=== PATIENT | female | born 1975 | race Caucasian/White ===

== ENCOUNTER 2016-09-02 23:30 | Emergency (ER) | payer SELFPAY ==
--- NOTE | 2016-09-03 02:01 | ED NURSING NOTES ---
Clinical Report - Nurses [facility] [address] [place] [address] 09/02/2016 23:32 Patient: JENS CRENSHAW TRIAGE Triage time 23:37. Acuity: LEVEL 3. Chief Complaint: (Syncopal episode). 23:48. Alert. SEPSIS SCREEN: Sepsis Screen. Negative (no infection suspected/documented). OLIVE COMA SCORE: Olive Coma Scale: 15- eyes open spontaneously (4); best verbal response- oriented x 4 (5); best motor response- obeys commands (6). --23:48 Eric Eagle R.N. 23:41 09/02/16. BP: 119/79. HR: 91. RR: 15. O2 saturation: 100%. Temp: 98.4 F (oral). Pain level now: 0/10. --23:48 Eric Eagle R.N. Weight: 72.5 kg stated. Height/Length: 66 inches Per Patient. BMI: 25.8. --23:44 Eric Eagle R.N. Medications None. --23:44 Eric Eagle R.N. Allergies No Known Drug Allergy. --23:44 Eric Eagle R.N. Medication/allergy information source: the patient. --23:48 Eric Eagle R.N. History Arrived by private vehicle. Historian: patient. Accompanied by friend. Primary physician (None). Onset. (15 - 20 minutes ago). ( [place], had had a migraine ORELLANA for most of the day, stood up and got dizzy, lightheaded and passed out, was caught by her boyfriend and lowered her to the floor). Treatment SURVEY TECHNICIAN: EMS treatment SURVEY TECHNICIAN verbally communicated. Oxygen administered by nasal cannula and at 2 liters/minute. ( 500ml NS infused SURVEY TECHNICIAN). PAST MEDICAL HX: Immunizations: up-to-date. The patient has had a hysterectomy. SOCIAL HX: Current every day heavy tobacco smoker- 1 pack per day. Occasional alcohol use. No drug use. No infectious disease exposure. ABUSE ASSESSMENT: No report of abuse. FALL RISK ASSESSMENT: Fall risk assessment completed. No fall risk identified. NUTRITIONAL RISK ASSESSMENT: The nutritional risk assessment revealed no deficiencies. FUNCTIONAL ASSESSMENT: Functional assessment: no impairments noted. LEARNING NEEDS ASSESSMENT: The learning needs assessment revealed no barriers. SKIN INTEGRITY ASSESSMENT: Skin integrity risk assessment completed. No skin integrity risk identified. --23:48 Eric Eagle R.N. PROBLEMS: Migraine Headache. --23:44 Eric Eagle R.N. ADDITIONAL SURGERIES: Cholecystectomy. Hysterectomy. --23:44 Eric Eagle R.N. Interventions ID band on patient. To treatment room. --23:48 Eric Eagle R.N. <<STRICKEN ENTRY-- 23:28 09/02/2016 Site #1 started prior to arrival by EMS via IV in the right antecubital space with an 18g angiocath. --23:43 Eric Eagle R.N. --END STRIKE>> Correction. --23:54 Eric Eagle R.N. 23:28 09/02/2016 Site #1 started prior to arrival by EMS via IV in the right forearm with an 18g angiocath. --23:54 Eric Eagle R.N. PHYSICAL ASSESSMENT 23:49. To room via stretcher. Patient gowned. GENERAL / NEURO / PSYCH: Alert. Oriented X 4. HEENT: No facial asymmetry noted. Mucous membranes are pink. RESPIRATORY: Respirations not labored. SKIN: Skin intact. Skin is warm and dry. Normal skin turgor. --23:49 Eric Eagle R.N. NURSING PROGRESS NOTES 23:46. EKG time: (3855). EKG was performed by a tech and shown to the ED physician. --23:59 Eric Eagle R.N. 23:49. Head of bed elevated. Two patient identifiers checked. Call light placed in reach. Side rails up x 1. Bed placed in lowest position. Brakes of bed on. Patient ready for evaluation- chart flagged. --23:49 Eric Eagle R.N. 23:49 Boyfriend at bedside. --23:49 Eric Eagle R.N. 23:53 Attempted to draw blood from IV site - unable. --23:54 Eric Eagle R.N. 23:31 09/02/2016 Started bag #1 1000 mL IV Fluids IV NS (Saline); at 1000 mL/hr over 1 hour(s) via site #1. (500ml infused SURVEY TECHNICIAN). --23:56 Eric Eagle R.N. 23:56 09/02/2016 IV Fluids IV NS Discontinued: bag #1 infused. Total amount infused: 1000 mL. IV patency established. IV site checked: no pain, redness, or swelling. IV flushed thoroughly. --23:56 Eric Eagle R.N. 23:57 Patient assisted to restroom. --23:59 Eric Eagle R.N. 00:00. Patient ID band checked for patient name and birthdate: patient confirmed. Clean catch urine collected with return of yellow-colored clear urine; sample sent to lab for urinalysis. Specimen labeled in the presence of the patient. --00:04 Eric Eagle R.N. 00:27 equip tech with pt for blood draw. --00:27 Eric Eagle R.N. 00:37. Patient transported to CT by stretcher with tech. --00:38 Eric Eagle R.N. 00:48. Patient returned from CT by stretcher with tech. --00:51 Eric Eagle R.N. The patient is calm and resting quietly. RESPIRATORY: No respiratory distress. SKIN: Skin is warm and dry. Skin color within normal limits. --01:31 Eric Eagle R.N. 01:30 09/03/16. BP: 106/61. HR: 82. RR: 15. O2 saturation: 99% on room air. Pain level now: 0/10. --01:31 Eric Eagle R.N. 02:05. The patient is calm and resting quietly. RESPIRATORY: No respiratory distress. SKIN: Skin is warm and dry. Skin color within normal limits. --02:11 Eric Eagle R.N. DISPOSITION / DISCHARGE 02:05 09/03/2016 Site #1 removed upon discharge. Catheter intact. Bandage applied. --02:10 Eric Eagle R.N. Departure time: 02:10. Condition at departure: stable. ( See progress for vitals). No learning barriers present. Discharge instructions provided and reviewed with the patient. Reviewed medication(s) side effects, precautions, dosing and course information. Prescription(s) given to the patient. Patient verbalized understanding. Written instructions provided in [place]. The patient was discharged home and accompanied by guard entrance registrar. She left the Emergency Department ambulatory and via private vehicle. Nurses Superintendent driving. FALL RISK ASSESSMENT: Fall risk assessment completed. No fall risk identified. --02:11 Eric Eagle R.N. Locked/Released at 09/03/2016 2:12 by Eric Eagle R.N.
--- NOTE | 2016-09-03 02:01 | ED ORDER SUMMARY ---
..... Patient: JENS CRENSHAW OrderSheet [facility] VisitID: [id number] [address] [place] [address] 40y, F Registration Date/Time: 09/02/2016 ORDER SHEET Weight: 72.5 kg (stated) Allergies: No Known Drug Allergy GENERAL ORDERS: CBC w Diff Urgent (23:55 09/02/2016 JQuivey R.N. per protocol) (Ack 23:58 CHagerty ER Focuser) (0:37 JQuivey R.N.) CMP Urgent (23:55 09/02/2016 JQuivey R.N. per protocol) (Ack 23:58 CHagerty ER Focuser) (0:37 JQuivey R.N.) UA-Culture if indicated Urgent (23:55 09/02/2016 JQuivey R.N. per protocol) (Ack 23:58 CHagerty ER Focuser) (0:18 CHagerty ER Focuser) EKG - ER Stat (23:55 09/02/2016 JQuivey R.N. per protocol) (Ack 23:58 CHagerty ER Focuser) (23:58 CHagerty ER Focuser) Urine Urgent (00:01 09/03/2016 Emanuel Randle) (0:18 CHagerty ER Focuser) CT Head wo Cont Urgent (00:30 09/03/2016 Emanuel Randle) (Ack 0:36 CHagerty ER Focuser) (0:52 JQuivey R.N.) MEDICATION ORDERS: IV FLUIDS: IV NS : initial bolus none -, then 1000 mL/hr (NOW) (23:55 09/02/2016 JQuivey R.N. per protocol) (23:56 JQuivey R.N.) ORDER SHEET NOTES: [Electronically signed by Eric Eagle R.N. (02:12 09/03/2016)] [Electronically signed by Bassem Au Dr. (16:15 09/05/2016)] [Electronically locked/signed by Eric Eagle R.N. (02:12 09/03/2016)]
--- NOTE | 2016-09-03 02:01 | ED ORDER SUMMARY ---
..... Patient: JENS CRENSHAW OrderSheet [facility] VisitID: [id number] [address] [place] [address] 40y, F Registration Date/Time: 09/02/2016 ORDER SHEET Weight: 72.5 kg (stated) Allergies: No Known Drug Allergy GENERAL ORDERS: CBC w Diff Urgent (23:55 09/02/2016 JQuivey R.N. per protocol) (Ack 23:58 CHagerty ER Crew Boss) (0:37 JQuivey R.N.) CMP Urgent (23:55 09/02/2016 JQuivey R.N. per protocol) (Ack 23:58 CHagerty ER Crew Boss) (0:37 JQuivey R.N.) UA-Culture if indicated Urgent (23:55 09/02/2016 JQuivey R.N. per protocol) (Ack 23:58 CHagerty ER Crew Boss) (0:18 CHagerty ER Crew Boss) EKG - ER Stat (23:55 09/02/2016 JQuivey R.N. per protocol) (Ack 23:58 CHagerty ER Crew Boss) (23:58 CHagerty ER Crew Boss) Urine Urgent (00:01 09/03/2016 Emanuel Randle) (0:18 CHagerty ER Crew Boss) CT Head wo Cont Urgent (00:30 09/03/2016 Emanuel Randle) (Ack 0:36 CHagerty ER Crew Boss) (0:52 JQuivey R.N.) MEDICATION ORDERS: IV FLUIDS: IV NS : initial bolus none -, then 1000 mL/hr (NOW) (23:55 09/02/2016 JQuivey R.N. per protocol) (23:56 JQuivey R.N.) ORDER SHEET NOTES: [Electronically signed by Eric Eagle R.N. (02:12 09/03/2016)] [Electronically signed by Bassem Au Dr. (16:15 09/05/2016)] [Electronically locked/signed by Eric Eagle R.N. (02:12 09/03/2016)]
--- NOTE | 2016-09-03 02:01 | ED CLINICAL REPORT ---
Clinical Report - Physicians/Mid Levels [facility] [address] [place] [address] 09/02/2016 23:32 Patient: JENS CRENSHAW Time Seen: 2349. Arrived- By private vehicle. Historian- patient. HISTORY OF PRESENT ILLNESS Is no longer unconscious. She has recovered. Chief Complaint: SINGLE SYNCOPAL EPISODE. It was abrupt in onset and has been intermittent. This occurred today. Event was not witnessed. The patient lost consciousness and collapsed. The event occurred during exertion. The patient had preceding symptoms of light-headedness. No preceding symptoms of chest pain or abdominal pain. The episode lasted seconds. No injuries noted. Currently she feels normal. No weakness currently. No nausea currently. No headache currently. Similar symptoms previously: None. Recent medical care: Not recently seen/assessed. REVIEW OF SYSTEMS No headache, dizziness, chest pain, palpitations or abdominal pain. No vomiting, diarrhea, black stools, numbness or bloody stools. No fever, sore throat or difficulty breathing. All systems otherwise negative, except as recorded above. PAST HISTORY See nurses notes. Medications: None. Allergies: No Known Drug Allergy. SOCIAL HISTORY Smoker- current status unknown. Never smoker. Occasional alcohol use. No drug use. Is a local resident. ADDITIONAL NOTES The nursing notes have been reviewed. PHYSICAL EXAM Vital Signs: 09/02/2016 23:41 BP: 119/79. HR: 91. RR: 15. O2 saturation: 100%. Temp: 98.4 F. Pain level now: 0/10. Blood pressure normal. Oxygen saturation normal. Appearance: Alert. No acute distress. Eyes: Pupils equal, round and reactive to light. No nystagmus. Extraocular movements normal. ENT: Normal ENT inspection. TM's normal. Moist mucous membranes. Pharynx normal. Neck: Normal inspection. Neck supple. CVS: Normal heart rate and rhythm. Heart sounds normal. Pulses normal. Respiratory: No respiratory distress. Breath sounds normal. Abdomen: Soft and nontender. No organomegaly. Skin: Skin warm and dry. Normal skin color. No rash. Normal skin turgor. Extremities: Extremities exhibit normal ROM. No lower extremity edema. Neuro: Alert. Oriented X 3. Mood/affect normal. Speech normal. Cranial nerves normal (as tested). No cerebellar findings. No motor deficit. No sensory deficit. Reflexes normal. (normal gait). LABS, X-RAYS, AND EKG EKG: No acute process. No acute ischemia. Normal EKG. Normal sinus rhythm. Normal P waves. Normal DIANE. Normal QRS complex. Normal axis. Normal ST and T waves, QT and QTc. Prior EKG unavailable. The study has been interpreted contemporaneously. The study has been independently viewed by me. Artifact present. Laboratory Tests: UA-Culture if indicated: (LETICIA: 09/03/2016 00:01) ( [facility] 09/03/2016 00:16) Final results Test Result Flag Units (Reference) URINE COLOR YELLOW URINE APPEARANCE CLEAR URINE GLUCOSE NEGATIVE (NEGATIVE) URINE BILIRUBIN NEGATIVE (NEGATIVE) URINE KETONE NEGATIVE (NEGATIVE) URINE SPECIFIC GRAVITY 1.020 (1.010-1.030) URINE PH 6.0 (5.0-8.0) URINE PROTEIN NEGATIVE (NEGATIVE) URINE UROBILINOGEN 0.2 EU/dL (0.2-1.0) URINE NITRITE NEGATIVE (NEGATIVE) URINE BLOOD NEGATIVE (NEGATIVE) URINE LEUK ESTERASE NEGATIVE (NEGATIVE) URINE RBC 0-1 rbc/hpf (0-1) URINE WBC 0-1 wbc/hpf (0-1) URINE EPITHELIAL CELLS 0-1 EPI/hpf (0-5) URINE BACTERIA NONE SEEN (NONE SEEN) URINE COMMENT CULT NOT INDICATED URINE CULTURES ARE SET-UP BASED ON THE FOLLOWING CRITERIA:POSITIVE NITRITEPOSITIVE LEUKOCYTE ESTERASEGREATER THAN 10 WHITE BLOOD CELLSMODERATE (2+) OR GREATER BACTERIA Urine: (LETICIA: 09/03/2016 00:01) ( [facility] 09/03/2016 00:11) Final results Test Result Flag Units (Reference) URINE NEGATIVE CBC w Diff: (LETICIA: 09/03/2016 00:25) ( [facility] 09/03/2016 00:36) Final results Test Result Flag Units (Reference) WHITE BLOOD COUNT 14.0 H K/uL (4.5-11.5) RED BLOOD COUNT 4.59 M/uL (4.00-5.20) HEMOGLOBIN 14.3 gm/dL (12.0-16.0) HEMATOCRIT 42.5 % (36.0-46.0) MEAN CELL VOLUME 93 fL (80-100) MEAN CORPUSCULAR HGB 31 pg (26-34) MEAN CORPUSCULAR HGB CONC 34 g/dL (31-37) RED CELL DISTRIBUTION WIDTH 13.9 % (11.6-14.8) PLATELET COUNT 245 K/uL (150-400) NEUTROPHIL % 84.1 H % (50-75) LYMPH % 10.5 L % (25-40) MONO % 4.3 % (3-14) EOSINOPHIL % 0.9 % (0-4) BASOPHIL % 0.2 % (0-2) CMP: (LETICIA: 09/03/2016 00:25) ( MsgRcvd 09/03/2016 00:50) Final results Test Result Flag Units (Reference) GLUCOSE 98 mg/dL (70-110) BUN 8 mg/dL (7-18) CREATININE 0.7 mg/dL (0.6-1.3) Estimated GFR >60 mL/min Estimated GFR- >60 mL/min Note: Persistent reduction over 3 months in eGFR<60 mL/min/1.73 m2 defines CKD. Patients with eGFR values>=60 mL/min/1.73 m2 may also have CKD if evidence ofpersistent proteinuria. Additional information may be foundat www.kidney.org. SODIUM 141 mmol/L (136-145) POTASSIUM 3.7 mmol/L (3.5-5.1) CHLORIDE 106 mmol/L (98-107) CARBON DIOXIDE 23 mmol/L (21-32) CALCIUM 8.3 L mg/dL (8.5-10.1) TOTAL PROTEIN 7.3 g/dL (6.4-8.2) ALBUMIN 3.7 g/dL (3.3-5.0) BILIRUBIN, TOTAL 0.4 mg/dL (0.0-1.0) ALKALINE PHOSPHATASE 73 U/L (46-116) AST (SGOT) 14 L U/L (15-37) ALT (SGPT) 20 U/L (12-78) . PROGRESS AND PROCEDURES Course of Care: the patient is a 40-year-old female presenting for evaluation of syncopal event. The patient will be evaluated with the [place] syncope rule. Patient is currently lying in bed in no acute distress. Patient appears nontoxic. Patient will be evaluated for other etiologies of the syncope including ectopic with a urine test on the urinary tract infection. patient is agreeable to the treatment and plan. The patient's workup was remarkable for the findings above. Patient was resting in bed in no acute distress. Repeat examination continues to be benign. Had a discussion with the patient in regards to syncope in the emergency department. Recommend patient follow up with her primary care doctor. No acute Abnormality noted on patient's workup here in emergency department. Patient at low risk for adverse outcomes based on her evaluation here in the emergency department today. Had a discussion with the patient in regards to her workup here in emergency department including diagnosis, home care, follow-up, and return precautions. All questions have been answered. The patient expressed understanding of these instructions and was agreeable to that. Do not feel patient needs be admitted to the hospital. Did not feel further emergency department workup required at this time. Disposition: Discharged. Condition: good. CLINICAL IMPRESSION Syncope of unknown cause(acute). INSTRUCTIONS Warnings: GENERAL WARNINGS: Return or contact your physician immediately if your condition worsens or changes unexpectedly, if not improving as expected, or if other problems arise. SPECIFICALLY, return if you develop chest pain, fluttering sensation in your chest, lightheadedness, fainting, numbness, weakness or extreme fatigue. Your Current Medications: CONTINUE TAKING THE FOLLOWING MEDICATIONS: None*. Prescription Medications: Zofran (orally disintegrating tablets) 4 mg: take 1 orally every 8 hours as needed for nausea and vomiting. Dispense ten (10). No refill. Substitution is permissible. Follow-up: Return to the emergency department as needed. Follow up with doctor. Reason for referral: recheck today's concerns. Summary of care provided to patient via paper. Screening today revealed the patient's blood pressure to be in the normal range. The patient should follow up with a primary care provider for blood pressure management. Understanding of the discharge instructions verbalized by patient. (Electronically signed by Bassem Au Dr. 09/05/2016 16:15)
--- NOTE | 2016-09-03 02:01 | ED NURSING NOTES ---
Clinical Report - Nurses [facility] [address] [place] [address] 09/02/2016 23:32 Patient: JENS CRENSHAW TRIAGE Triage time 23:37. Acuity: LEVEL 3. Chief Complaint: (Syncopal episode). 23:48. Alert. SEPSIS SCREEN: Sepsis Screen. Negative (no infection suspected/documented). OLIVE COMA SCORE: Olive Coma Scale: 15- eyes open spontaneously (4); best verbal response- oriented x 4 (5); best motor response- obeys commands (6). --23:48 Eric Eagle R.N. 23:41 09/02/16. BP: 119/79. HR: 91. RR: 15. O2 saturation: 100%. Temp: 98.4 F (oral). Pain level now: 0/10. --23:48 Eric Eagle R.N. Weight: 72.5 kg stated. Height/Length: 66 inches Per Patient. BMI: 25.8. --23:44 Eric Eagle R.N. Medications None. --23:44 Eric Eagle R.N. Allergies No Known Drug Allergy. --23:44 Eric Eagle R.N. Medication/allergy information source: the patient. --23:48 Eric Eagle R.N. History Arrived by private vehicle. Historian: patient. Accompanied by friend. Primary physician (None). Onset. (15 - 20 minutes ago). ( [place], had had a migraine ORELLANA for most of the day, stood up and got dizzy, lightheaded and passed out, was caught by her boyfriend and lowered her to the floor). Treatment PYTHON PROGRAMMER: EMS treatment PYTHON PROGRAMMER verbally communicated. Oxygen administered by nasal cannula and at 2 liters/minute. ( 500ml NS infused PYTHON PROGRAMMER). PAST MEDICAL HX: Immunizations: up-to-date. The patient has had a hysterectomy. SOCIAL HX: Current every day heavy tobacco smoker- 1 pack per day. Occasional alcohol use. No drug use. No infectious disease exposure. ABUSE ASSESSMENT: No report of abuse. FALL RISK ASSESSMENT: Fall risk assessment completed. No fall risk identified. NUTRITIONAL RISK ASSESSMENT: The nutritional risk assessment revealed no deficiencies. FUNCTIONAL ASSESSMENT: Functional assessment: no impairments noted. LEARNING NEEDS ASSESSMENT: The learning needs assessment revealed no barriers. SKIN INTEGRITY ASSESSMENT: Skin integrity risk assessment completed. No skin integrity risk identified. --23:48 Eric Eagle R.N. PROBLEMS: Migraine Headache. --23:44 Eric Eagle R.N. ADDITIONAL SURGERIES: Cholecystectomy. Hysterectomy. --23:44 Eric Eagle R.N. Interventions ID band on patient. To treatment room. --23:48 Eric Eagle R.N. <<STRICKEN ENTRY-- 23:28 09/02/2016 Site #1 started prior to arrival by EMS via IV in the right antecubital space with an 18g angiocath. --23:43 Eric Eagle R.N. --END STRIKE>> Correction. --23:54 Eric Eagle R.N. 23:28 09/02/2016 Site #1 started prior to arrival by EMS via IV in the right forearm with an 18g angiocath. --23:54 Eric Eagle R.N. PHYSICAL ASSESSMENT 23:49. To room via stretcher. Patient gowned. GENERAL / NEURO / PSYCH: Alert. Oriented X 4. HEENT: No facial asymmetry noted. Mucous membranes are pink. RESPIRATORY: Respirations not labored. SKIN: Skin intact. Skin is warm and dry. Normal skin turgor. --23:49 Eric Eagle R.N. NURSING PROGRESS NOTES 23:46. EKG time: (8815). EKG was performed by a tech and shown to the ED physician. --23:59 Eric Eagle R.N. 23:49. Head of bed elevated. Two patient identifiers checked. Call light placed in reach. Side rails up x 1. Bed placed in lowest position. Brakes of bed on. Patient ready for evaluation- chart flagged. --23:49 Eric Eagle R.N. 23:49 Boyfriend at bedside. --23:49 Eric Eagle R.N. 23:53 Attempted to draw blood from IV site - unable. --23:54 Eric Eagle R.N. 23:31 09/02/2016 Started bag #1 1000 mL IV Fluids IV NS (Saline); at 1000 mL/hr over 1 hour(s) via site #1. (500ml infused PYTHON PROGRAMMER). --23:56 Eric Eagle R.N. 23:56 09/02/2016 IV Fluids IV NS Discontinued: bag #1 infused. Total amount infused: 1000 mL. IV patency established. IV site checked: no pain, redness, or swelling. IV flushed thoroughly. --23:56 Eric Eagle R.N. 23:57 Patient assisted to restroom. --23:59 Eric Eagle R.N. 00:00. Patient ID band checked for patient name and birthdate: patient confirmed. Clean catch urine collected with return of yellow-colored clear urine; sample sent to lab for urinalysis. Specimen labeled in the presence of the patient. --00:04 Eric Eagle R.N. 00:27 telecommunications technician with pt for blood draw. --00:27 Eric Eagle R.N. 00:37. Patient transported to CT by stretcher with tech. --00:38 Eric Eagle R.N. 00:48. Patient returned from CT by stretcher with tech. --00:51 Eric Eagle R.N. The patient is calm and resting quietly. RESPIRATORY: No respiratory distress. SKIN: Skin is warm and dry. Skin color within normal limits. --01:31 Eric Eagle R.N. 01:30 09/03/16. BP: 106/61. HR: 82. RR: 15. O2 saturation: 99% on room air. Pain level now: 0/10. --01:31 Eric Eagle R.N. 02:05. The patient is calm and resting quietly. RESPIRATORY: No respiratory distress. SKIN: Skin is warm and dry. Skin color within normal limits. --02:11 Eric Eagle R.N. DISPOSITION / DISCHARGE 02:05 09/03/2016 Site #1 removed upon discharge. Catheter intact. Bandage applied. --02:10 Eric Eagle R.N. Departure time: 02:10. Condition at departure: stable. ( See progress for vitals). No learning barriers present. Discharge instructions provided and reviewed with the patient. Reviewed medication(s) side effects, precautions, dosing and course information. Prescription(s) given to the patient. Patient verbalized understanding. Written instructions provided in [place]. The patient was discharged home and accompanied by immigration associate. She left the Emergency Department ambulatory and via private vehicle. Religious Educator driving. FALL RISK ASSESSMENT: Fall risk assessment completed. No fall risk identified. --02:11 Eric Eagle R.N. Locked/Released at 09/03/2016 2:12 by Eric Eagle R.N.
--- NOTE | 2016-09-03 04:49 | DIAGNOSTIC IMAGING REPORT ---
PROCEDURE: CT HEAD WITHOUT CONTRAST INDICATION: SYNCOPE TECHNIQUE: Noncontrast axial images with sagittal and coronal reformations. There are poor provided by James Munoz MD. COMPARISON: None. FINDINGS: Brain and ventricles are normal. No evidence of an acute process or hemorrhage. Sinuses and mastoids are normal. IMPRESSION: 1. Negative head CT. All CT scans at this facility use dose modulation, iterative reconstruction, and/or weight-based dosing when appropriate to reduce radiation dose to as low as reasonably achievable.
--- NOTE | 2016-09-05 16:16 | ED MAR SUMMARY ---
..... Medication Administration Record [facility] [address] [place] [address] Patient: JENS CRENSHAW Visit ID: [id number] 40y, F Weight: 72.5 kg Height/Length: 66 in BMI: 25.8 ALLERGIES: No Known Drug Allergy Start 23:31 09/02/2016 Eric Eagle RBillN., Stop 23:56 09/02/2016 Eric Eagle RBillN. Medication Administered: IV NS (SALINE), Dose: IV Fluids over 1 hour(s), Rate: 1000 mL/hr, Dispensed: 1000 mL bag, Site: #1 right forearm. Medication Ordered: IV NS : initial bolus none -, then 1000 mL/hr (NOW).
--- NOTE | 2016-09-05 16:16 | ED MED RECONCILIATION SUMMARY ---
Patient: JENS CRENSHAW Medication Reconciliation Report [facility] VisitID: [id number] [address] [place] [address] 40y, F Registration Date/Time: 09/02/2016 Weight: 72.5 kg Height/Length: 66 in. BMI: 25.8 ALLERGIES: No Known Drug Allergy The patient's Home Medications are listed below: NONE. The source(s) of the original Home Medication information: patient The following Medications were given to the patient in the Emergency Department: IV NS IV Fluids bolus 0, then 1000 mL/hr, administered: 09/02/2016 11:31:00 PM The following Medications were prescribed to the patient: Zofran (orally disintegrating tablets) 4 mg: take 1 orally every 8 hours as needed for nausea and vomiting. Dispense ten (10). No refill. Substitution is permissible. -- Bassem Au Dr.
--- NOTE | 2016-09-05 16:16 | ED DISCHARGE INSTRUCTIONS ---
Patient: JENS CRENSHAW General Instructions [facility] VisitID: [id number] [place] [address] 40y, F Registration Date/Time: 09/02/2016 Syncope of unknown cause(acute). INSTRUCTIONS Warnings: GENERAL WARNINGS: Return or contact your physician immediately if your condition worsens or changes unexpectedly, if not improving as expected, or if other problems arise. SPECIFICALLY, return if you develop chest pain, fluttering sensation in your chest, lightheadedness, fainting, numbness, weakness or extreme fatigue. Your Current Medications: CONTINUE TAKING THE FOLLOWING MEDICATIONS: None*. Prescription Medications: Zofran (orally disintegrating tablets) 4 mg: take 1 orally every 8 hours as needed for nausea and vomiting. Dispense ten (10). No refill. Substitution is permissible. Follow-up: Return to the emergency department as needed. Follow up with doctor. Reason for referral: recheck today's concerns. Summary of care provided to patient via paper. Screening today revealed the patient's blood pressure to be in the normal range. The patient should follow up with a primary care provider for blood pressure management. Understanding of the discharge instructions verbalized by patient. ADDITIONAL INFORMATION Fainting:Uncertain Cause Fainting (syncope) is a temporary loss of consciousness ("passing out"). It occurs when blood flow to the brain is reduced. Near-fainting ("near-syncope") is very similar to fainting, but you do not fully "pass out". The common minor causes of fainting include: sudden fear, pain, nausea, emotional stress and overexertion. Suddenly standing up after sitting or lying for a long time can also cause fainting. The more serious causes for fainting are due to either a very slow or very fast or very slow heart beat ("arrhythmia"), other types of heart disease, dehydration, blood loss, seizure, stroke or ruptured blood vessel in the brain. Taking too much high blood pressure medicine can also cause low blood pressure and fainting. The exact cause of your episode is not certain. However, the tests today did not show any of the serious causes of fainting. Sometimes further testing is needed to find out if a serious problem exists. Therefore, it is important that you follow-up with your doctor as advised. Home Care: 1) Rest today. You may resume your normal activities when you are feeling back to normal. It is best to remain with someone who can check on you for the next 24 hours to watch for another episode of fainting. 2) If you become light-headed or dizzy, lie down immediately or sit with your head between your knees. 3) Because we do not know the exact cause of your near fainting spell, it is possible for another spell to occur without warning. Therefore, do not drive a car or operate dangerous equipment, do not take a bath alone (use a shower instead) and do not swim alone until your doctor says that you are no longer in danger of having another fainting spell. Follow Up with your doctor as advised. Get Prompt Medical Attention if any of the following occur: -- Another fainting spell occurs, which is not explained by the common causes listed above -- Chest, arm, neck, jaw, back or abdominal pain -- Shortness of breath -- Severe headache or seizure -- Blood in vomit, stools (black or red color) -- Unexpected vaginal bleeding -- Palpitations (very rapid or very slow or irregular heart beat) -- Signs of stroke: Weakness of an arm or leg or one side of the face Difficulty with speech or vision Extreme drowsiness, confusion, dizziness or fainting Ondansetron Oral disintegrating tablet What is this medicine? ONDANSETRON (on ALEC se yahir) is used to treat nausea and vomiting caused by chemotherapy. It is also used to prevent or treat nausea and vomiting after surgery. How should I use this medicine? These tablets are made to dissolve in the mouth. Do not try to push the tablet through the foil backing. With dry hands, peel away the foil backing and gently remove the tablet. Place the tablet in the mouth and allow it to dissolve, then swallow. While you may take these tablets with water, it is not necessary to do so. Talk to your finish sander regarding the use of this medicine in children. Special care may be needed. What side effects may I notice from receiving this medicine? Side effects that you should report to your doctor or health post acute care registered nurse as soon as possible: allergic reactions like skin rash, itching or hives, swelling of the face, lips, or tongue breathing problems dizziness fast or irregular heartbeat feeling faint or lightheaded, falls fever and chills swelling of the hands and feet tightness in the chest Side effects that usually do not require medical attention (report to your doctor or health post acute care registered nurse if they continue or are bothersome): constipation or diarrhea headache What may interact with this medicine? Do not take this medicine with any of the following medications: -apomorphine -cisapride -dofetilide -dronedarone -pimozide -thioridazine -ziprasidone This medicine may also interact with the following medications: -carbamazepine -phenytoin -rifampicin -tramadol -other medicines that prolong the QT interval (cause an abnormal heart rhythm) What if I miss a dose? If you miss a dose, take it as soon as you can. If it is almost time for your next dose, take only that dose. Do not take double or extra doses. Where should I keep my medicine? Keep out of the reach of children. Store between 2 and 30 degrees C (36 and 86 degrees F). Throw away any unused medicine after the expiration date. What should I tell my health care provider before I take this medicine? They need to know if you have any of these conditions: heart disease history of irregular heartbeat liver disease low levels of magnesium or potassium in the blood an unusual or allergic reaction to ondansetron, granisetron, other medicines, foods, dyes, or preservatives or trying to get breast-feeding What should I watch for while using this medicine? Check with your doctor or health post acute care registered nurse as soon as you can if you have any sign of an allergic reaction. You have been given the following additional information: Syncope, Unk Cause Ondansetron Oral disintegrating tablet (Electronically signed by Bassem Au Dr. 09/05/2016 16:15)
--- NOTE | 2016-09-05 16:16 | ED DISCHARGE INSTRUCTIONS ---
Patient: JENS CRENSHAW General Instructions [facility] VisitID: [id number] [place] [address] 40y, F Registration Date/Time: 09/02/2016 Syncope of unknown cause(acute). INSTRUCTIONS Warnings: GENERAL WARNINGS: Return or contact your physician immediately if your condition worsens or changes unexpectedly, if not improving as expected, or if other problems arise. SPECIFICALLY, return if you develop chest pain, fluttering sensation in your chest, lightheadedness, fainting, numbness, weakness or extreme fatigue. Your Current Medications: CONTINUE TAKING THE FOLLOWING MEDICATIONS: None*. Prescription Medications: Zofran (orally disintegrating tablets) 4 mg: take 1 orally every 8 hours as needed for nausea and vomiting. Dispense ten (10). No refill. Substitution is permissible. Follow-up: Return to the emergency department as needed. Follow up with doctor. Reason for referral: recheck today's concerns. Summary of care provided to patient via paper. Screening today revealed the patient's blood pressure to be in the normal range. The patient should follow up with a primary care provider for blood pressure management. Understanding of the discharge instructions verbalized by patient. ADDITIONAL INFORMATION Fainting:Uncertain Cause Fainting (syncope) is a temporary loss of consciousness ("passing out"). It occurs when blood flow to the brain is reduced. Near-fainting ("near-syncope") is very similar to fainting, but you do not fully "pass out". The common minor causes of fainting include: sudden fear, pain, nausea, emotional stress and overexertion. Suddenly standing up after sitting or lying for a long time can also cause fainting. The more serious causes for fainting are due to either a very slow or very fast or very slow heart beat ("arrhythmia"), other types of heart disease, dehydration, blood loss, seizure, stroke or ruptured blood vessel in the brain. Taking too much high blood pressure medicine can also cause low blood pressure and fainting. The exact cause of your episode is not certain. However, the tests today did not show any of the serious causes of fainting. Sometimes further testing is needed to find out if a serious problem exists. Therefore, it is important that you follow-up with your doctor as advised. Home Care: 1) Rest today. You may resume your normal activities when you are feeling back to normal. It is best to remain with someone who can check on you for the next 24 hours to watch for another episode of fainting. 2) If you become light-headed or dizzy, lie down immediately or sit with your head between your knees. 3) Because we do not know the exact cause of your near fainting spell, it is possible for another spell to occur without warning. Therefore, do not drive a car or operate dangerous equipment, do not take a bath alone (use a shower instead) and do not swim alone until your doctor says that you are no longer in danger of having another fainting spell. Follow Up with your doctor as advised. Get Prompt Medical Attention if any of the following occur: -- Another fainting spell occurs, which is not explained by the common causes listed above -- Chest, arm, neck, jaw, back or abdominal pain -- Shortness of breath -- Severe headache or seizure -- Blood in vomit, stools (black or red color) -- Unexpected vaginal bleeding -- Palpitations (very rapid or very slow or irregular heart beat) -- Signs of stroke: Weakness of an arm or leg or one side of the face Difficulty with speech or vision Extreme drowsiness, confusion, dizziness or fainting Ondansetron Oral disintegrating tablet What is this medicine? ONDANSETRON (on ALEC se yahir) is used to treat nausea and vomiting caused by chemotherapy. It is also used to prevent or treat nausea and vomiting after surgery. How should I use this medicine? These tablets are made to dissolve in the mouth. Do not try to push the tablet through the foil backing. With dry hands, peel away the foil backing and gently remove the tablet. Place the tablet in the mouth and allow it to dissolve, then swallow. While you may take these tablets with water, it is not necessary to do so. Talk to your videogame tester regarding the use of this medicine in children. Special care may be needed. What side effects may I notice from receiving this medicine? Side effects that you should report to your doctor or health housekeeper caregiver as soon as possible: allergic reactions like skin rash, itching or hives, swelling of the face, lips, or tongue breathing problems dizziness fast or irregular heartbeat feeling faint or lightheaded, falls fever and chills swelling of the hands and feet tightness in the chest Side effects that usually do not require medical attention (report to your doctor or health housekeeper caregiver if they continue or are bothersome): constipation or diarrhea headache What may interact with this medicine? Do not take this medicine with any of the following medications: -apomorphine -cisapride -dofetilide -dronedarone -pimozide -thioridazine -ziprasidone This medicine may also interact with the following medications: -carbamazepine -phenytoin -rifampicin -tramadol -other medicines that prolong the QT interval (cause an abnormal heart rhythm) What if I miss a dose? If you miss a dose, take it as soon as you can. If it is almost time for your next dose, take only that dose. Do not take double or extra doses. Where should I keep my medicine? Keep out of the reach of children. Store between 2 and 30 degrees C (36 and 86 degrees F). Throw away any unused medicine after the expiration date. What should I tell my health care provider before I take this medicine? They need to know if you have any of these conditions: heart disease history of irregular heartbeat liver disease low levels of magnesium or potassium in the blood an unusual or allergic reaction to ondansetron, granisetron, other medicines, foods, dyes, or preservatives or trying to get breast-feeding What should I watch for while using this medicine? Check with your doctor or health housekeeper caregiver as soon as you can if you have any sign of an allergic reaction. You have been given the following additional information: Syncope, Unk Cause Ondansetron Oral disintegrating tablet (Electronically signed by Bassem Au Dr. 09/05/2016 16:15)
--- NOTE | 2016-09-05 16:16 | ED MED RECONCILIATION SUMMARY ---
Patient: JENS CRENSHAW Medication Reconciliation Report [facility] VisitID: [id number] [address] [place] [address] 40y, F Registration Date/Time: 09/02/2016 Weight: 72.5 kg Height/Length: 66 in. BMI: 25.8 ALLERGIES: No Known Drug Allergy The patient's Home Medications are listed below: NONE. The source(s) of the original Home Medication information: patient The following Medications were given to the patient in the Emergency Department: IV NS IV Fluids bolus 0, then 1000 mL/hr, administered: 09/02/2016 11:31:00 PM The following Medications were prescribed to the patient: Zofran (orally disintegrating tablets) 4 mg: take 1 orally every 8 hours as needed for nausea and vomiting. Dispense ten (10). No refill. Substitution is permissible. -- Bassem Au Dr.
--- NOTE | 2016-09-05 16:16 | ED MAR SUMMARY ---
..... Medication Administration Record [facility] [address] [place] [address] Patient: JENS CRENSHAW Visit ID: [id number] 40y, F Weight: 72.5 kg Height/Length: 66 in BMI: 25.8 ALLERGIES: No Known Drug Allergy Start 23:31 09/02/2016 Eric Eagle RBillN., Stop 23:56 09/02/2016 Eric Eagle RBillN. Medication Administered: IV NS (SALINE), Dose: IV Fluids over 1 hour(s), Rate: 1000 mL/hr, Dispensed: 1000 mL bag, Site: #1 right forearm. Medication Ordered: IV NS : initial bolus none -, then 1000 mL/hr (NOW).
== END 2016-09-03 02:10 | disposition home or self-care (01) ==
LOC: ED SRH 23:30
DX: R55 Syncope and collapse (principal)
CPT/HCPCS: 90004; 90074; 90100; 93070; 95059